=== PATIENT | female | born 1990 | race Caucasian/White ===

== ENCOUNTER 2020-04-22 12:46 | Outpatient (CLI) | payer OTHER ==
[2020-04-22 13:20] LABS: BASOPHILS # (AUTO) 0.1 K/uL (0.00-0.22); BASOPHILS % (AUTO) 0.8 % (0.0-2.0); EOSINOPHILS % (AUTO) 0.2 % (0.0-4.0); HEMATOCRIT 39.8 % (36-52); HEMOGLOBIN 13.5 g/dL (12.0-18.0); LYMPHOCYTES # (AUTO) 1.8 K/uL (2.0-11.5); LYMPHOCYTES % (AUTO) 22.3 % (20.5-51.1); MEAN CORPUSCULAR HEMOGLOBIN 28 pg (27-31); MEAN CORPUSCULAR HGB CONC 34 g/dL (33-37); MEAN CORPUSCULAR VOLUME 82.9 fL (80-94); MONOCYTES # (AUTO) 0.7 K/uL (0.8-1.0); NEUTROPHILS # (AUTO) 5.5 K/uL (1.8-7.7); NEUTROPHILS % (AUTO) 67.7 % (42.2-75.2); PLATELET COUNT (AUTO) 281 K/uL (140-450); RED CELL DISTRIBUTION WIDTH 15.1 % (11.6-13.7); WHITE BLOOD COUNT (AUTO) 8.2 K/uL (4.8-10.8)
[2020-04-22 13:37] LABS: BARBITURATE, URINE NEGATIVE ng/ml (NEG <=200); BENZODIAZEPINE, URINE NEGATIVE ng/mL (NEG <=200); CANNABINOID, URINE NEGATIVE ng/mL (NEG <=50); COCAINE, URINE NEGATIVE ng/mL (NEG <=300); OPIATE, URINE NEGATIVE ng/mL (NEG <=2000); PHENCYCLIDINE SCREEN,URINE NEGATIVE ng/mL (NEG <=25)
[2020-04-23 09:06] LABS: HEPATITIS B SURFACE ANTIGEN Negative (Negative)
== END 2020-04-22 19:56 | disposition home or self-care (01) ==
LOC: MLB 12:46 → EDSEX 12:46 → MLB 19:56
PROVIDERS: ATTEND Obstetrics & Gynecology
DX: Z34.81 Encounter for supervision of other normal pregnancy, first trimester (principal); Z3A.00 Weeks of gestation of pregnancy not specified
CPT/HCPCS: 36415; 80305; 85025; 86592; 86762; 86900; 86901; 87070; 87086; 87340; 87491

== ENCOUNTER 2020-08-27 16:20 | Observation (INO) | payer OTHER, SELFPAY ==
[~2020-08-27] VITALS: Ht 160 cm; Wt 72.6 kg
[2020-08-27 17:09] VITALS: BP 118/69
[2020-08-27] MEDS ORDERED: ZOLPIDEM 5 MG TAB PO PRN (20:15)
[2020-08-27] MEDS ORDERED: TERBUTALINE 2.5 MG TAB ONE (20:19)
[2020-08-28] MEDS ORDERED: TERBUTALINE 2.5 MG TAB PO SCH
--- NOTE | 2020-08-28 07:03 | NUR ---
PATIENT HAS BEEN SCREENED AND CATEGORIZED LOW NUTRITION RISK. PATIENT WILL BE SEEN WITHIN 7 DAYS OF ADMISSION. 09/04/20 JAGDEEP HOLLIDAY MS, RDN
== END 2020-08-28 14:30 | disposition home or self-care (01) ==
LOC: MLD 16:20
PROVIDERS: ADMIT Obstetrics & Gynecology; ATTEND Obstetrics & Gynecology
DX: O26.893 Other specified pregnancy related conditions, third trimester (principal); R10.9 Unspecified abdominal pain; Z3A.28 28 weeks gestation of pregnancy
CPT/HCPCS: 76805; G0378; 59025; 81000; G0379

== ENCOUNTER 2020-10-15 13:16 | Inpatient (IN) | payer OTHER, SELFPAY ==
[~2020-10-15] VITALS: Ht 160 cm; Wt 77.1 kg
[2020-10-15] MEDS ORDERED: TERBUTALINE 1 MG/ML VIAL SUBQ ONE (13:55)
[2020-10-15] MEDS ORDERED: TERBUTALINE 1 MG/ML VIAL SUBQ SCH ×2 (13:55→17:00)
[2020-10-15 13:57] VITALS: BP 112/70
[2020-10-15] MEDS: BETAMETH ACET/BETAMETH NA PH 30 MG/5 ML VIAL IM SCH (15:08)
[2020-10-15] MEDS: LACTATED RINGERS 1,000 ML IV SCH ×2 (16:56→23:48)
[2020-10-15] MEDS: TERBUTALINE 2.5 MG TAB PO SCH ×2 (17:58→23:50)
[2020-10-16] MEDS: BETAMETH ACET/BETAMETH NA PH 30 MG/5 ML VIAL IM SCH (03:13)
[2020-10-16] MEDS: TERBUTALINE 2.5 MG TAB PO SCH ×2 (06:08→12:03)
--- NOTE | 2020-10-16 07:51 | NUR ---
PATIENT HAS BEEN SCREENED AND CATEGORIZED LOW NUTRITION RISK. PATIENT WILL BE SEEN WITHIN 7 DAYS OF ADMISSION. 10/22/[address]
[2020-10-16] MEDS: LACTATED RINGERS 1,000 ML IV SCH ×3 (08:43→22:52)
[2020-10-16] MEDS: APAP/BUTAL/CAFF 325/50/40 MG 1 TAB PO PRN ×2 (11:10→22:53)
[2020-10-16] MEDS ORDERED: NIFEdipine 10 MG CAPLF ONE (14:54)
[2020-10-16 15:45] LABS: BASOPHILS % (AUTO) 0.2 % (0.0-2.0); HEMATOCRIT 30.5 % (36-48); HEMOGLOBIN 10.2 g/dL (12.0-16.0); LYMPHOCYTES # (AUTO) 0.9 K/uL (2.5-16.5); LYMPHOCYTES % (AUTO) 8.1 % (20.5-51.1); MEAN CORPUSCULAR HEMOGLOBIN 27 pg (27-31); MEAN CORPUSCULAR HGB CONC 33 g/dL (33-37); MEAN CORPUSCULAR VOLUME 81.8 fL (80-94); MONOCYTES # (AUTO) 0.6 K/uL (0.8-1.0); MONOCYTES % (AUTO) 5.3 % (1.7-9.3); NEUTROPHILS # (AUTO) 9.6 K/uL (1.8-7.7); NEUTROPHILS % (AUTO) 86.4 % (42.2-75.2); PLATELET COUNT (AUTO) 246 K/uL (140-450); RED BLOOD CELL COUNT(AUTO) 3.73 MIL/uL (4.20-5.40); RED CELL DISTRIBUTION WIDTH 14.6 % (11.6-13.7); WHITE BLOOD COUNT (AUTO) 11.1 K/uL (4.8-10.8)
[2020-10-16 16:19] LABS: ALBUMIN 2.6 g/dL (3.4-5.0); ANION GAP 16.7 (8-16); CARBON DIOXIDE 18.5 mmol/L (21-32); CREATININE 0.6 mg/dL (0.6-1.3); POTASSIUM 4.2 mmol/L (3.5-5.1); TOTAL BILIRUBIN 0.1 mg/dL (0.0-1.0)
[2020-10-16 17:01] LABS: PROTHROMBIN TIME 9.3 secs (10.8-13.4)
[2020-10-16 17:26] LABS: APPEARANCE,URINE CLEAR (CLEAR); BILIRUBIN,URINE NEGATIVE (NEGATIVE); BLOOD, URINE NEGATIVE (NEGATIVE); COLOR,URINE YELLOW (YELLOW); LEUKOCYTE ESTERASE ,URINE NEGATIVE (NEGATIVE); NITRITE, URINE NEGATIVE (NEGATIVE); PH,URINE 5.5 (5.0-9.0); UGLUCOSE 2+ (NEGATIVE)
[2020-10-16] MEDS: NALBUPHINE 10 MG/ML AMP IVP PRN ×2 (18:00→23:58)
[2020-10-16] MEDS: NIFEdipine 10 MG CAPLF PO SCH ×2 (18:45→22:37)
[2020-10-16] MEDS ORDERED: ONDANSETRON 4 MG/2 ML VIAL ONE (19:44)
[2020-10-16] MEDS ORDERED: ONDANSETRON 4 MG/2 ML VIAL IVP PRN (19:45)
[2020-10-16] MEDS ORDERED: ZOLPIDEM 5 MG TAB PO PRN (22:00)
[2020-10-17] MEDS ORDERED: FERROUS SULFATE 300 MG/5 ML UDC GT SCH (09:00)
[2020-10-17] MEDS ORDERED: DOCUSATE SODIUM 100 MG GELCAP PO SCH (09:00)
[2020-10-17] MEDS ORDERED: FAMOTIDINE 20 MG TAB PO SCH (09:00)
== END 2020-10-17 02:39 | disposition short-term general hospital (02) | DRG 833 ==
LOC: MLD 13:16 → MFCC 14:45 → OBSVTOIN 10-16 15:30
PROVIDERS: ADMIT Obstetrics & Gynecology; ATTEND Obstetrics & Gynecology
DX: O60.03 Preterm labor without delivery, third trimester (principal); O34.211 Maternal care for low transverse scar from previous cesarean delivery; Z20.822 Contact with and (suspected) exposure to COVID-19; Z3A.33 33 weeks gestation of pregnancy
CPT/HCPCS: 36415; 80053; 81003; 85025; 85379; 85384; 85610; 85730; G0378; J0702; J2300; J2405; J3105